=== PATIENT | female | born 1995 | race Caucasian/White ===

== ENCOUNTER → 2022-12-10 | Outpatient (CLI) | payer BC ==
--- NOTE | 2022-12-10 11:59 | Diagnostic Imaging Report ---
INDICATION: ABNORMAL THYROID BLOOD TEST TECHNIQUE: Grayscale sonographic images of the thyroid gland. CORRELATION STUDY: None FINDINGS: RIGHT LOBE: 4.4 x 1.8 x 1.7 cm. Heterogeneous echotexture throughout the right thyroid lobe with some increased vascularity. Two small solid-appearing nodules present. Relatively isoechoic. The largest is 0.9 x 0.8 x 0.7 cm. Additional one is 0.4 x 0.3 x 0.3 cm. LEFT LOBE: 3.4 x 1.2 x 1.4 cm. Slight heterogeneous echotexture with increased vascularity. At least 3 small nodules are present. All solid and appearing to be relatively isoechoic. Largest is at 0.5 x 0.3 x 0.6 cm. Isthmus appears unremarkable. IMPRESSION: 1. Normal-sized thyroid gland with heterogeneous echotexture and slight increased vascularity. Nonspecific but can be seen with thyroiditis. Several small, predominantly subcentimeter solid nodules are present. No currently suspicious mass. Follow-up ultrasound imaging in approximately one year recommended. (Normal gland size: 4-5 x 2 x 2 cm) Dictated by: Dictated on workstation # [id number]
== END ==
LOC: RAD 08:30
PROVIDERS: ATTEND Family Medicine
DX: E04.2 Nontoxic multinodular goiter (principal); R79.89 Other specified abnormal findings of blood chemistry
CPT/HCPCS: 76536